=== PATIENT | female | born 1940 | race Caucasian/White ===

== ENCOUNTER 2025-02-08 00:17 | Emergency (ER) | payer BC, MEDICARE ==
[2025-02-08] MEDS: Bacitracin Oint 1 GM U/D Packet TOP ONE (01:00)
[2025-02-08] MEDS: Lidocaine 1% with EPINEPHrine 1:100,000 50 ML MDV SUBCUT STA (01:00)
== END 2025-02-08 02:16 | disposition home or self-care (01) ==
LOC: JP.ED 00:17
DX: S02.2XXA Fracture of nasal bones, initial encounter for closed fracture (principal); S01.81XA Laceration without foreign body of other part of head, initial encounter; I11.0 Hypertensive heart disease with heart failure; I50.9 Heart failure, unspecified; I25.10 Atherosclerotic heart disease of native coronary artery without angina pectoris; I48.91 Unspecified atrial fibrillation; J44.9 Chronic obstructive pulmonary disease, unspecified; Z95.1 Presence of aortocoronary bypass graft; E11.40 Type 2 diabetes mellitus with diabetic neuropathy, unspecified; Z79.01 Long term (current) use of anticoagulants; Z79.899 Other long term (current) drug therapy; W01.198A Fall on same level from slipping, tripping and stumbling with subsequent striking against other object, initial encounter
CPT/HCPCS: 12013; 70450; 70486; 99283